=== PATIENT | male | born 1960 | race African-American/Black ===

== ENCOUNTER 2019-05-03 18:17 | Inpatient (IN) | payer MEDICAID, OTHER ==
[~2019-05-03] VITALS: Ht 172.7 cm; Wt 69.9 kg
[~2019-05-03 18:17] MED LIST: ASPI-1393 PO; ATOR10TA69 PO; CLON0.1T PO; HYDR-4134 PO
[2019-05-03] MEDS ORDERED: ONDANSETRON HCL 4MG/2ML INJ IV STA (19:02)
[2019-05-03] MEDS ORDERED: MORPHINE SULFATE 4 MG/ML CPJ (NOT FOR IM USE) IV STA (19:02)
[2019-05-03] MEDS ORDERED: SODIUM CHLORIDE 0.9% 1,000 ML IV ONE (19:02)
[2019-05-03 19:50] LABS: BASOPHILS % 0.2 % (0.0-2.0); HEMATOCRIT. 33.9 % (42.0-52.0); HEMOGLOBIN. 11.8 g/dL (14.0-18.0); MEAN CORPUSCULAR HEMOGLOBIN 31.7 pg (28.0-32.0); MEAN CORPUSCULAR VOLUME 91.2 fL (80.0-94.0); NEUTROPHILS % 80.8 % (40.0-76.0); PLATELET 121 x1000/uL (130-400); RED BLOOD CELL COUNT 3.72 mill/uL (4.7-6.1); RED CELL DISTRIBUTION WIDTH 14.7 % (11.6-14.6)
[2019-05-03 19:58] LABS: CHLORIDE 112 mEq/L (98-107)
[2019-05-03 19:59] LABS: PARTIAL THROMBOPLASTIN TIME 24.3 sec (23.4-31.0); PROTHROMBIN TIME 10.4 sec (9.6-11.0)
[2019-05-03 21:35] LABS: CLARITY URINE CLEAR (CLEAR); COLOR URINE DARK YELLOW (YELLOW); KETONES URINE TRACE (NEGATIVE); LEUKOCYTE ESTERASE URINE NEGATIVE (NEGATIVE); NITRITE URINE NEGATIVE (NEGATIVE); OCCULT BLOOD URINE NEGATIVE (NEGATIVE); PH URINE 6.5 (4.5-8.0); PROTEIN URINE NEGATIVE (NEGATIVE); SPECIFIC GRAVITY URINE 1.019 (1.005-1.030)
[2019-05-03] MEDS ORDERED: SODIUM CHLORIDE 0.9% 1,000 ML IV SCH (23:33)
[2019-05-03] MEDS ORDERED: DOCUSATE SODIUM 100MG CAPSULE PO PRN (23:45)
[2019-05-03] MEDS ORDERED: ACETAMINOPHEN 325MG TABLET PO PRN (23:45)
[2019-05-03] MEDS ORDERED: MAGNESIUM/ALUMINUM HYDROXIDE/SIMETHICONE 30ML UDC PO PRN (23:45)
[2019-05-03] MEDS ORDERED: CLONIDINE 0.1MG TABLET PO PRN (23:45)
[2019-05-03] MEDS ORDERED: IPRATROPIUM/ALBUTEROL 0.5-3(2.5)MG/3ML NEB INH PRN (23:45)
[2019-05-03] MEDS ORDERED: ENOXAPARIN 40MG/0.4ML SYR SUBCUT SCH (23:45)
[2019-05-03] MEDS ORDERED: ONDANSETRON HCL 4MG/2ML INJ IV PRN (23:45)
[2019-05-04] VITALS (7 sets, daily range): BP systolic 135–162; BP diastolic 79–95
[2019-05-04] MEDS: SODIUM CHLORIDE 0.9% 1,000 ML IV SCH (03:35)
[2019-05-04 08:55] LABS: BASOPHILS % 0.4 % (0.0-2.0); EOSINOPHILS % 0.8 % (0.0-5.0); HEMATOCRIT. 32.6 % (42.0-52.0); HEMOGLOBIN. 10.8 g/dL (14.0-18.0); LYMPHOCYTES % 16.4 % (20.0-50.0); MEAN CORPUSCULAR HEMOGLOBIN 30.6 pg (28.0-32.0); MEAN CORPUSCULAR VOLUME 92.7 fL (80.0-94.0); MEAN PLATELET VOLUME 10.3 fl (7.4-10.4); MONOCYTES % 10.1 % (2.0-8.0); NEUTROPHILS % 72.3 % (40.0-76.0); PLATELET 115 x1000/uL (130-400); RED BLOOD CELL COUNT 3.51 mill/uL (4.7-6.1); RED CELL DISTRIBUTION WIDTH 14.6 % (11.6-14.6)
[2019-05-04 08:56] LABS: *AMPHETAMINES SCREEN URINE NEGATIVE (NEGATIVE); *BARBITURATES SCREEN URINE NEGATIVE (NEGATIVE); CANNABINOID URINE SCREEN NEGATIVE (NEGATIVE); OPIATES URINE SCREEN NEGATIVE (NEGATIVE); PHENCYCLIDINE URINE SCREEN NEGATIVE (NEGATIVE)
[2019-05-04 08:57] LABS: *BENZODIAZEPINES SCREEN URINE NEGATIVE (NEGATIVE); *COCAINE SCREEN URINE NEGATIVE (NEGATIVE); METHADONE URINE SCREEN NEGATIVE (NEGATIVE)
[2019-05-04 09:29] LABS: LDL CHOLESTEROL 65 mg/dL (5-100)
[2019-05-04 09:30] LABS: CREATINE KINASE 141 IU/L (39-308); HDL CHOLESTEROL 55 mg/dL (40-59)
[2019-05-04 09:32] LABS: CHLORIDE 109 mEq/L (98-107)
[2019-05-04 09:32] LABS: CREATINE KINASE MB FRACTION 1.4 ng/mL (0.5-3.6)
[2019-05-04] MEDS: AMLODIPINE 5MG TABLET PO SCH (09:53)
[2019-05-04] MEDS: ENOXAPARIN 40MG/0.4ML SYR SUBCUT SCH (09:54)
[2019-05-04] MEDS ORDERED: ACETAMINOPHEN 325MG TABLET PO PRN (13:45)
[2019-05-04] MEDS ORDERED: POTASSIUM CHLORIDE 20MEQ TABLET SR PO NR (17:30)
[2019-05-04] MEDS: ATORVASTATIN CALCIUM 10MG TABLET PO SCH (18:29)
[2019-05-04] MEDS: ASPIRIN 81MG TABLET PO SCH (18:30)
[2019-05-05] VITALS (7 sets, daily range): BP systolic 128–155; BP diastolic 66–89
[2019-05-05 06:05] LABS: BASOPHILS % 0.7 % (0.0-2.0); EOSINOPHILS % 3.1 % (0.0-5.0); HEMATOCRIT. 31.2 % (42.0-52.0); HEMOGLOBIN. 10.5 g/dL (14.0-18.0); LYMPHOCYTES % 31.5 % (20.0-50.0); MEAN CORPUSCULAR VOLUME 92.3 fL (80.0-94.0); MEAN PLATELET VOLUME 10.2 fl (7.4-10.4); MONOCYTES % 10.9 % (2.0-8.0); NEUTROPHILS % 53.8 % (40.0-76.0); PLATELET 106 x1000/uL (130-400); RED BLOOD CELL COUNT 3.39 mill/uL (4.7-6.1); RED CELL DISTRIBUTION WIDTH 14.4 % (11.6-14.6)
[2019-05-05 06:49] LABS: CHLORIDE 111 mEq/L (98-107)
[2019-05-05 06:55] LABS: TOTAL IRON BINDING CAPACITY 185 ug/dL (250-450)
[2019-05-05 06:58] LABS: T4 FREE 1.04 ng/dL (0.76-1.46)
[2019-05-05 07:59] LABS: PROSTRATE SPECIFIC AG TOTAL 0.13 ng/mL (0.0-4.0)
[2019-05-05] MEDS: ATORVASTATIN CALCIUM 10MG TABLET PO SCH (10:43)
[2019-05-05] MEDS: AMLODIPINE 5MG TABLET PO SCH (10:43)
[2019-05-05] MEDS: ENOXAPARIN 40MG/0.4ML SYR SUBCUT SCH (10:44)
[2019-05-05] MEDS: ASPIRIN 81MG TABLET PO SCH (10:44)
[2019-05-05] MEDS: SODIUM CHLORIDE 0.9% 1,000 ML IV SCH (22:03)
[2019-05-06] VITALS: BP 145/66
[2019-05-06 00:56] VITALS: BP 138/89
[2019-05-06 04:00] VITALS: BP 149/77
[2019-05-06 04:47] LABS: CHLORIDE 109 mEq/L (98-107)
[2019-05-06 06:04] LABS: BASOPHILS % 0.5 % (0.0-2.0); EOSINOPHILS % 2.4 % (0.0-5.0); HEMATOCRIT. 34.5 % (42.0-52.0); HEMOGLOBIN. 11.6 g/dL (14.0-18.0); MEAN CORPUSCULAR HEMOGLOBIN 31.1 pg (28.0-32.0); MEAN CORPUSCULAR VOLUME 92.4 fL (80.0-94.0); MEAN PLATELET VOLUME 10.3 fl (7.4-10.4); NEUTROPHILS % 69.1 % (40.0-76.0); PLATELET 107 x1000/uL (130-400); RED BLOOD CELL COUNT 3.73 mill/uL (4.7-6.1)
[2019-05-06 08:00] VITALS: BP 145/82
[2019-05-06] MEDS: ENOXAPARIN 40MG/0.4ML SYR SUBCUT SCH (09:00)
[2019-05-06] MEDS: AMLODIPINE 5MG TABLET PO SCH (09:05)
[2019-05-06] MEDS: ATORVASTATIN CALCIUM 10MG TABLET PO SCH (09:05)
[2019-05-06] MEDS: ASPIRIN 81MG TABLET PO SCH (09:05)
[2019-05-06] MEDS ORDERED: POTASSIUM CHLORIDE 20MEQ/PACKET GT NR (11:15)
[2019-05-06 12:03] VITALS: BP 149/85
[2019-05-06] MEDS: SODIUM CHLORIDE 0.9% 1,000 ML IV SCH (13:16)
[2019-05-06 15:11] VITALS: BP 149/85
[2019-05-06] MEDS ORDERED: AMLO5TAB88 PO (15:50)
== END 2019-05-06 16:23 | disposition home or self-care (01) | DRG 204 ==
LOC: ER 18:17 → 8WST 22:12 → ENRESERV 23:07 → ER 23:41
PROVIDERS: ADMIT Internal Medicine; ATTEND Internal Medicine
DX: R55 Syncope and collapse (principal); I69.351 Hemiplegia and hemiparesis following cerebral infarction affecting right dominant side; K76.89 Other specified diseases of liver; R13.10 Dysphagia, unspecified; N28.1 Cyst of kidney, acquired; Z93.1 Gastrostomy status; D64.9 Anemia, unspecified; E78.5 Hyperlipidemia, unspecified; E87.6 Hypokalemia; I10 Essential (primary) hypertension; N40.0 Benign prostatic hyperplasia without lower urinary tract symptoms; E05.90 Thyrotoxicosis, unspecified without thyrotoxic crisis or storm; Z79.82 Long term (current) use of aspirin; I69.320 Aphasia following cerebral infarction; I69.391 Dysphagia following cerebral infarction; Z79.899 Other long term (current) drug therapy
CPT/HCPCS: 36415; 71045; 74176; 80048; 80061; 80305; 82550; 82553; 82728; 83036; 83540; 83550; 83735; 83880; 84153; 84439; 84443; 84481; 84484; 92610; 93005; 93306; 93880; 99285; C1893; J1650; J2270; J2405; J7030; G0103

== ENCOUNTER 2024-12-25 02:07 | Emergency (ER) | payer MEDICAID ==
[~2024-12-25] VITALS: Ht 172.7 cm; Wt 81.0 kg
[~2024-12-25 02:07] MED LIST changes: +AMLO5TAB88 PO; -ASPI-1393 PO; +ASPI-1497 PO; -CLON0.1T PO; -HYDR-4134 PO
[2024-12-25 02:19] VITALS: TEMP 36.9; O2SAT 95
[2024-12-25] MEDS: LEVETIRACETAM 1000MG PREMIX 100 ML IV ONE (05:18)
[2024-12-25] MEDS: LABETALOL 5MG/ML 4ML INJ IV ONE (05:26)
[2024-12-25 06:51] LABS: BASOPHILS % 0.4 % (0.0-2.0); CHLORIDE 110 mEq/L (98-107); EOSINOPHILS % 0.3 % (0.0-5.0); HEMATOCRIT. 41.5 % (42.0-52.0); HEMOGLOBIN. 13.6 g/dL (14.0-18.0); MEAN CORPUSCULAR HEMOGLOBIN 30.9 pg (28.0-32.0); MEAN CORPUSCULAR HGB CONC 32.9 g/dL (31.0-37.0); MEAN PLATELET VOLUME 10.3 fl (7.4-10.4); MONOCYTES % 6.3 % (2.0-8.0); PLATELET 104 x1000/uL (130-400); POTASSIUM 3.8 mEq/L (3.5-5.1); RED BLOOD CELL COUNT 4.41 mill/uL (4.7-6.1); RED CELL DISTRIBUTION WIDTH 14.9 % (11.6-14.6); SODIUM 142 mEq/L (136-145); WHITE BLOOD COUNT 7.7 x1000/uL (4.5-11.0)
[2024-12-25 06:52] LABS: CARBON DIOXIDE 26 mEq/L (21-32)
[2024-12-25 06:53] LABS: CALCIUM 9.1 mg/dL (8.7-10.4)
[2024-12-25 06:55] LABS: PROTHROMBIN TIME 10.8 sec (9.6-11.0)
[2024-12-25 06:57] LABS: CREATININE 1.3 mg/dL (0.6-1.3); GLUCOSE 118 mg/dL (70-105); UREA NITROGEN BLOOD 19 mg/dL (9-23)
[2024-12-25] MEDS ORDERED: CLONIDINE 0.1MG TABLET PO PRN (07:45)
[2024-12-25] MEDS ORDERED: GUAIFENESIN 200MG/10ML SUGAR FREE UDC PO PRN (07:45)
[2024-12-25] MEDS ORDERED: IPRATROPIUM/ALBUTEROL 0.5-3(2.5)MG/3ML NEB HHN PRN (07:45)
[2024-12-25] MEDS ORDERED: ACETAMINOPHEN 325MG TABLET PO PRN (07:45)
[2024-12-25] MEDS ORDERED: DOCUSATE SODIUM 100MG CAPSULE PO PRN (07:45)
[2024-12-25] MEDS ORDERED: ONDANSETRON HCL 4MG/2ML INJ IV PRN (07:45)
[2024-12-25] MEDS ORDERED: ASPIRIN 81MG EC TABLET PO SCH (09:00)
[2024-12-25] MEDS ORDERED: AMLODIPINE 5MG TABLET PO SCH (09:00)
[2024-12-25 09:24] VITALS: BP 146/91; PULSE 79; RESP 18; O2SAT 97
[2024-12-25] MEDS ORDERED: ATORVASTATIN CALCIUM 40MG TABLET PO SCH (21:00)
== END 2024-12-25 09:25 | disposition left against medical advice (07) ==
LOC: ER 02:14
DX: I10 Essential (primary) hypertension (principal); I69.320 Aphasia following cerebral infarction; R56.9 Unspecified convulsions; Z79.82 Long term (current) use of aspirin; Z79.899 Other long term (current) drug therapy
CPT/HCPCS: 99285; 96365; 70450; 71045; 80048; 85025; 85610; 36415; 93005; J1953